=== PATIENT | male | born 1950 | race Caucasian/White ===

== ENCOUNTER 2017-04-10 12:04 | Emergency (ER) | payer MEDICARE, MEDICAID ==
[2017-04-10] MEDS ORDERED: Lidocaine 1% with EPINEPHrine 1:100,000 20 ML MDV ONE ×2 (12:16→12:24)
[2017-04-10] MEDS ORDERED: Oxymetazoline 0.05% Nasal Spray 15 ML Bottle NAS ONE (12:16)
[2017-04-10 12:33] VITALS: BP 83/59
--- NOTE | 2017-04-10 12:44 | EDM.PDOC ---
Scribed by Gerda Cain 04/10/17 1244 for Nakul Rodriguez MD ED HPI GENERAL MEDICAL PROBLEM - General Chief Complaint: ENT Problem Stated Complaint: BLOODY NOSEB Time Seen by Provider: 04/10/17 12:10 Source of Information: Reports: Patient, RN, RN Notes Reviewed History Limitations: Reports: No Limitations - History of Present Illness INITIAL COMMENTS - FREE TEXT/NARRATIVE: Patient has had recurrent nose bleeds for the last month in his left nostril. Today he started bleeding at11:30 and was not able to get it to stop. He has not sought medical care for his nose bleeds. He denies injury. Duration: Getting Worse Location: Reports: Other (nose) Severity: Severe Improves with: Reports: None Worsens with: Reports: None Associated Symptoms: Reports: No Other Symptoms - Related Data Allergies Allergy/AdvReac Type Severity Reaction Status Date / Time No Known Allergies Allergy Verified 04/10/17 12:08 Home Meds: Home Meds Apixaban [Eliquis] 5 mg PO DAILY 01/11/16 [History] Furosemide [Furosemide] 20 mg PO DAILY 01/11/16 [History] Metoprolol Tartrate [Metoprolol Tartrate] 25 mg PO BID 01/11/16 [History] Simvastatin [Simvastatin] 20 mg PO DAILY 01/11/16 [History] Aspirin [Ecotrin] 81 mg PO DAILY 04/10/17 [History] Digoxin [Digox] 125 mcg PO DAILY 04/10/17 [History] Lisinopril [Lisinopril] 2.5 mg PO DAILY 04/10/17 [History] Past Medical History - Past Health History Medical/Surgical History: Denies Medical/Surgical History HEENT History: Reports: Impaired Vision Cardiovascular History: Reports: Afib, Heart Failure - Infectious Disease History Infectious Disease History: Reports: Mumps Social & Family History - Family History Cardiac: Reports: Angina, CAD, Heart Failure, Hypertension, Stent GI: Reports: Cirrhosis (Father: Alcoholic liver disease), Jaundice (Father) Psychiatric: Reports: Other (See Below) Endocrine/Metabolic: Reports: Obesity/MBI 30+ (Sister morbidly obese) - Tobacco Use Smoking Status *Q: Never Smoker Month Tobacco Last Used: 2012 Second Hand Smoke Exposure: No - Caffeine Use Caffeine Use: Reports: Coffee Caffeine Use Comment: once a week - Recreational Drug Use Recreational Drug Use: No - Living Situation & Occupation Living situation: Reports: Single, with Family Occupation: Retired ED ROS ENT - Review of Systems Review Of Systems: ROS reveals no pertinent complaints other than HPI. ED EXAM, ENT - Physical Exam Exam: See Below Exam Limited By: No Limitations General Appearance: Alert, WD/WN, No Apparent Distress Eye Exam: Bilateral Eye: Normal Inspection Ears: Hearing Grossly Normal Nose: Active Bleeding, Other (Active bleeding left nare with large clot. No site of bleeding seen due to blood and clot.). No: Nasal Swelling, Nasal Tenderness Mouth/Throat: Normal Inspection Head: Atraumatic, Normocephalic Neck: Normal Inspection, Full Range of Motion Respiratory/Chest: No Respiratory Distress Cardiovascular: Regular Rate, Rhythm Neurological: Alert, Oriented, CN II-XII Intact, Normal Cognition, Normal Gait, Normal Reflexes, No Motor/Sensory Deficits Psychiatric: Normal Affect, Normal Mood Skin: Warm, Dry, Intact, Normal Color, No Rash ED ENT PROCEDURES - Epistaxis Procedure Indication: Epistaxis, Uncontrolled Recent anticoagulants/antiplatlets: Yes Uncontrolled HTN: No Recent septal/nasal surgery: No Site of bleeding: Left Nare Clearing of clots: Patient Blew Nose Topical Meds: Other (Afrin + Lidocaine 1% w/Epi.) Ice pack to area: No Posterior packing: Long Inflatable Nasal Tampon Local anesthesia - Lidocaine (Xylocaine): 1% with EPI Local Anesthetic Volume: 2cc Complications: No Course - Vital Signs Last Recorded V/S: Last Vital Signs Temp 36.8 C 04/10/17 12:10 Pulse 60 04/10/17 12:30 Resp 18 04/10/17 12:30 BP 83/59 L 04/10/17 12:30 Pulse Ox 97 04/10/17 12:30 - Orders/Labs/Meds Meds: Medications Discontinued Medications Generic Name Dose Route Start Last Admin Trade Name Jean PRN Reason Stop Dose Admin Lidocaine/Epinephrine 20 ml 04/10/17 12:16 04/10/17 12:25 Xylocaine 1% With Epinephrine 1:100,000 .XX 04/10/17 12:17 20 ml ONETIME ONE Administration Lidocaine/Epinephrine Confirm 04/10/17 12:24 Xylocaine 1% With Epinephrine 1:100,000 Administered 04/10/17 12:25 Dose 20 ml .ROUTE .STK-MED ONE Oxymetazoline HCl 1 ml 04/10/17 12:16 04/10/17 12:25 Afrin Original 0.05% Nasal Roland SYLVIA 04/10/17 12:17 1 ml ONETIME ONE Administration Departure - Departure Time of Disposition: 12:41 Disposition: Home, Self-Care 01 Condition: Good Clinical Impression: Left-sided epistaxis - Discharge Information Instructions: Nosebleed, [id number] Forms: ED Department Discharge Additional Instructions: RX: Augmentin 875mg. Follow up in clinic Wednesday for recheck and packing. removal. I have read and agree with the documentation that has been completed regarding this visit. By signing this record, I attest that the documentation was completed in my physical presence and is an accurate record of the encounter.
[2017-04-10] MEDS ORDERED: Ondansetron 4 MG Tab.DIS PO ONE (12:52)
[2017-04-10] MEDS ORDERED: Sodium Chloride 0.9% 10 ML Syringe FLUSH PRN (12:55)
[2017-04-10 13:29] LABS: CHLORIDE,CL 100 mmol/L (101-111); SODIUM,NA 135 mmol/L (135-145)
--- NOTE | 2017-04-14 19:02 | EKG ---
04/10/2017 BRISEYDA BAKER I reviewed the EKG and agree with the machine's reading. [facility] /[id number]
== END 2017-04-10 14:06 | disposition home or self-care (01) ==
LOC: DL.ED 12:04
DX: R04.0 Epistaxis (principal); I50.9 Heart failure, unspecified; Z79.899 Other long term (current) drug therapy; Z79.82 Long term (current) use of aspirin
CPT/HCPCS: 30901; 36415; 80053; 80162; 83880; 84484; 85025; 93005; 93010; 99283; 99284; A9270; J7050